=== PATIENT | male | born 2000 | race African-American/Black ===

== ENCOUNTER 2019-04-03 01:40 | Emergency (ER) | payer SELFPAY ==
[~2019-04-03] VITALS: Ht 177.8 cm; Wt 77.0 kg
[2019-04-03 01:46] VITALS: BP 132/66
[2019-04-03] MEDS ORDERED: LEVETIRACETAM 500MG PREMIX 100 ML IV ONE (02:15)
[2019-04-03] MEDS ORDERED: SODIUM CHLORIDE 0.9% 1,000 ML IV ONE (02:15)
[2019-04-03] MEDS ORDERED: ONDANSETRON HCL 4MG/2ML INJ IV STA (02:15)
== END 2019-04-03 02:31 | disposition left against medical advice (07) ==
LOC: ER 01:40
DX: R56.9 Unspecified convulsions (principal); F12.10 Cannabis abuse, uncomplicated; Z91.14 Patient's other noncompliance with medication regimen
CPT/HCPCS: 99283; J7030